=== PATIENT | female | born 1990 | race Two or more races ===

== ENCOUNTER 2021-12-12 04:16 | Emergency (ER) | payer MEDICAID, OTHER ==
[~2021-12-12] VITALS: Ht 170.2 cm; Wt 72.7 kg
[2021-12-12 04:48] VITALS: BP 139/98
[2021-12-12] MEDS ORDERED: ACET-1158 PO (06:51)
== END 2021-12-12 09:27 | disposition home or self-care (01) ==
LOC: ER 04:16
DX: S16.1XXA Strain of muscle, fascia and tendon at neck level, initial encounter (principal); R51.9 Headache, unspecified; X58.XXXA Exposure to other specified factors, initial encounter; Y93.89 Activity, other specified; Y92.89 Other specified places as the place of occurrence of the external cause; Y99.8 Other external cause status
CPT/HCPCS: 70450; 72125; 81002; 81025